=== PATIENT | female | born 1965 | race Caucasian/White ===

== ENCOUNTER 2017-11-26 20:35 | Inpatient (IN) | payer OTHER ==
[2017-11-26] MEDS: IV NORMAL SALINE 1000ML BAG 1,000 ML IV ×2 (20:45→23:14)
[2017-11-26 20:55] LABS: POC GLUCOSE 457 mg/dL (70-99)
[2017-11-26 21:19] LABS: ADD MAN DIFF? NO
[2017-11-26 21:22] LABS: BASO % 1 % (0-3); EOS # 0.1 x10^3/uL (0.0-0.7); EOS % 2 % (0-3); HEMATOCRIT 36.7 % (36.0-47.0); HEMOGLOBIN 12.3 g/dL (12.0-15.5); LYMPH # 1.7 x10^3/uL (1.0-4.8); LYMPH % 24 % (24-48); MEAN CORPUSCULAR HEMOGLOBIN 29 pg (25-35); MEAN CORPUSCULAR HGB CONC 34 g/dL (31-37); MEAN CORPUSCULAR VOLUME 85 fL (79-100); MONO # 0.4 x10^3/uL (0.0-1.1); MONO % 6 % (0-9); NEUT # 4.6 x10^3uL (1.8-7.7); NEUT % 68 % (31-73); PLATELET COUNT 635 x10^3/uL (140-400); RED BLOOD COUNT 4.31 x10^6/uL (3.50-5.40); RED CELL DISTRIBUTION WIDTH 16.1 % (11.5-14.5); WHITE BLOOD COUNT 6.9 x10^3/uL (4.0-11.0)
[2017-11-26 21:38] LABS: ANION GAP 5 (6-14); BLOOD UREA NITROGEN 34 mg/dL (7-20); CALCIUM 8.8 mg/dL (8.5-10.1); CARBON DIOXIDE 33 mmol/L (21-32); CHLORIDE 95 mmol/L (98-107); CREATININE 1.6 mg/dL (0.6-1.0); GFR 33.8; GLUCOSE 492 mg/dL (70-99); POTASSIUM 4.9 mmol/L (3.5-5.1); SODIUM 133 mmol/L (136-145)
[2017-11-26 21:46] LABS: ALBUMIN 2.3 g/dL (3.4-5.0); ALK PHOS 158 U/L (46-116); ALT (SGPT) 20 U/L (14-59); AST (SGOT) 20 U/L (15-37); DIRECT BILIRUBIN < 0.1 mg/dL (0.0-0.2); TOTAL BILIRUBIN 0.1 mg/dL (0.2-1.0); TOTAL PROTEIN 8.4 g/dL (6.4-8.2)
[2017-11-26 21:51] LABS: NT-PRO BNP 312 pg/mL (0-124); TROPONINI < 0.017 ng/mL (0.000-0.055)
[2017-11-26 21:51] LABS: CKMB MASS 0.9 ng/mL (0.0-3.6); CREATINE KINASE 30 U/L (26-192)
[2017-11-26 21:58] LABS: LACTIC ACID 1.7 mmol/L (0.4-2.0)
[2017-11-26 22:24] LABS: POC GLUCOSE 390 mg/dL (70-99)
[2017-11-26] MEDS ORDERED: ONDANSETRON PF 4 MG/2 ML VIAL. IV (23:30)
[2017-11-26] MEDS: HYDROcodone/APAP 5/325MG 1 TAB TABLET PO (23:45)
[2017-11-26] MEDS: INSULIN ASPART 300 UNITS/3 ML INSULN.PEN SQ (23:47)
[2017-11-27 00:08] LABS: BILIRUBIN,URINE NEGATIVE (NEG); CLARITY,URINE CLOUDY; COLOR,URINE YELLOW; GLUCOSE,URINE >=1000 mg/dL (NEG); NITRITE,URINE NEGATIVE (NEG); PROTEIN,URINE 100 mg/dL (NEG-TRACE); UROBILINOGEN,URINE 0.2 mg/dL (0.2 mg/dL)
[2017-11-27 00:14] LABS: BARBITURATES NEG (NEG); BENZODIAZEPINES NEG (NEG); CANNABINOIDS NEG (NEG); COCAINE NEG (NEG); METHADONE NEG (NEG); OPIATES NEG (NEG); PHENCYCLIDINE NEG (NEG)
[2017-11-27 00:17] LABS: AMPHETAMINE/METHAMPHETAMINE NEG (NEG); ETHANOL, URINE NEG (NEG)
[2017-11-27 00:43] LABS: WBC,URINE TNTC /HPF (0-4)
[2017-11-27 00:44] LABS: BACTERIA,URINE MODERATE /HPF (0-FEW); SQUAMOUS EPITHELIAL CELL,UR FEW /LPF
[2017-11-27 01:25] LABS: POC GLUCOSE 164 mg/dL (70-99)
[2017-11-27] MEDS: IV NORMAL SALINE 1000ML BAG 1,000 ML IV (02:34)
[2017-11-27 05:07] LABS: POC GLUCOSE 53 mg/dL (70-99)
[2017-11-27] MEDS: DEXTROSE 50% 25 GM / 50ML DISP.SYRIN. IV (05:09)
[2017-11-27 05:18] LABS: ADD MAN DIFF? NO
[2017-11-27 05:35] LABS: POC GLUCOSE 142 mg/dL (70-99)
[2017-11-27 05:36] LABS: BASO % 0 % (0-3); EOS # 0.2 x10^3/uL (0.0-0.7); EOS % 2 % (0-3); HEMATOCRIT 32.6 % (36.0-47.0); HEMOGLOBIN 10.8 g/dL (12.0-15.5); LYMPH # 2.6 x10^3/uL (1.0-4.8); LYMPH % 36 % (24-48); MEAN CORPUSCULAR HEMOGLOBIN 28 pg (25-35); MEAN CORPUSCULAR HGB CONC 33 g/dL (31-37); MEAN CORPUSCULAR VOLUME 85 fL (79-100); MONO # 0.6 x10^3/uL (0.0-1.1); MONO % 8 % (0-9); NEUT # 3.9 x10^3uL (1.8-7.7); NEUT % 54 % (31-73); PLATELET COUNT 552 x10^3/uL (140-400); RED BLOOD COUNT 3.84 x10^6/uL (3.50-5.40); RED CELL DISTRIBUTION WIDTH 16.1 % (11.5-14.5); WHITE BLOOD COUNT 7.3 x10^3/uL (4.0-11.0)
[2017-11-27 06:05] LABS: TROPONINI < 0.017 ng/mL (0.000-0.055)
[2017-11-27 06:15] LABS: ANION GAP 7 (6-14); BLOOD UREA NITROGEN 29 mg/dL (7-20); CALCIUM 8.1 mg/dL (8.5-10.1); CARBON DIOXIDE 29 mmol/L (21-32); CHLORIDE 108 mmol/L (98-107); CREATININE 1.2 mg/dL (0.6-1.0); GFR 47.2; GLUCOSE 52 mg/dL (70-99); POTASSIUM 4.3 mmol/L (3.5-5.1); SODIUM 144 mmol/L (136-145)
[2017-11-27] MEDS: INSULIN ASPART 300 UNITS/3 ML INSULN.PEN SQ ×5 (08:00→17:00)
[2017-11-27 09:22] LABS: POC GLUCOSE 140 mg/dL (70-99)
[2017-11-27] MEDS ORDERED: NON FORMULARY ITEM (Albuterol Sulfate (Ventolin Hfa Inhaler) 2 PUFF) IH (11:30)
[2017-11-27] MEDS ORDERED: NITROGLYCERIN SUBLINGUAL 0.4 MG BOTTLE OF 25. SL (11:30)
[2017-11-27 11:45] LABS: TROPONINI 0.021 ng/mL (0.000-0.055)
[2017-11-27] MEDS: ALBUTEROL SULFATE 2.5 MG/3 ML NEBU. NEB ×3 (12:00→19:23)
[2017-11-27] MEDS ORDERED: ALBUTEROL SULFATE 2.5 MG/3 ML NEBU. NEB (12:00)
[2017-11-27] MEDS: BUDESONIDE 0.5 MG/2 ML NEBU. NEB ×2 (12:00→19:23)
[2017-11-27 12:47] LABS: POC GLUCOSE 143 mg/dL (70-99)
[2017-11-27] MEDS: MILNACIPRAN 50 MG TABLET PO ×2 (14:59→21:11)
[2017-11-27] MEDS: POTASSIUM CHLORIDE 20 MEQ TABLET.ER. PO (14:59)
[2017-11-27] MEDS: ALISKIREN HEMIFUMARATE 150 MG TABLET. PO (14:59)
[2017-11-27] MEDS: GABAPENTIN 300 MG CAPSULE. PO ×2 (15:00→21:11)
[2017-11-27] MEDS: amLODIPine BESYLATE 10 MG TABLET PO (15:00)
[2017-11-27] MEDS: metFORMIN XR 500 MG TAB.ER.24H PO (15:00)
[2017-11-27] MEDS: MONTELUKAST SODIUM 10 MG TABLET. PO (15:00)
[2017-11-27] MEDS: hydroCHLOROthiazide 12.5 MG CAPSULE PO (15:00)
[2017-11-27] MEDS: SPIRONOLACTONE 25 MG TABLET PO (15:01)
[2017-11-27] MEDS: FAMOTIDINE 20 MG TABLET. PO ×2 (15:01→21:11)
[2017-11-27] MEDS: metOLazone 2.5 MG TABLET PO (15:01)
[2017-11-27] MEDS: FUROSEMIDE 40 MG TABLET. PO (15:02)
[2017-11-27] MEDS: CYCLOBENZAPRINE 10 MG TABLET. PO ×2 (15:02→21:11)
[2017-11-27] MEDS: LISINOPRIL 20 MG TABLET PO (15:02)
[2017-11-27] MEDS ORDERED: HYDROcodone/APAP 5/325MG 1 TAB TABLET PO (15:45)
[2017-11-27 16:43] LABS: POC GLUCOSE 280 mg/dL (70-99)
[2017-11-27 20:12] LABS: HEMOGLOBIN A1C 10.7 % (4.8-5.6)
[2017-11-27 20:51] LABS: POC GLUCOSE 181 mg/dL (70-99)
[2017-11-27] MEDS ORDERED: NON FORMULARY ITEM (Fluticasone/Salmeterol (Advair 250-50 Diskus) 1 PUFF) IH (21:00)
[2017-11-27] MEDS: ATORVASTATIN CALCIUM 40 MG TABLET. PO (21:11)
[2017-11-28] MEDS: ALBUTEROL SULFATE 2.5 MG/3 ML NEBU. NEB ×2 (01:25→14:08)
[2017-11-28] MEDS: INSULIN ASPART 300 UNITS/3 ML INSULN.PEN SQ ×6 (07:30→17:00)
[2017-11-28 08:08] LABS: POC GLUCOSE 252 mg/dL (70-99)
[2017-11-28] MEDS: CYCLOBENZAPRINE 10 MG TABLET. PO ×3 (08:49→20:57)
[2017-11-28] MEDS: metFORMIN XR 500 MG TAB.ER.24H PO (08:49)
[2017-11-28] MEDS: FAMOTIDINE 20 MG TABLET. PO ×2 (08:49→20:57)
[2017-11-28] MEDS: MONTELUKAST SODIUM 10 MG TABLET. PO (08:49)
[2017-11-28] MEDS: MILNACIPRAN 50 MG TABLET PO ×2 (08:49→20:57)
[2017-11-28] MEDS: FUROSEMIDE 40 MG TABLET. PO ×2 (08:49→18:18)
[2017-11-28] MEDS: traMADol 50 MG TABLET PO (08:49)
[2017-11-28] MEDS: hydroCHLOROthiazide 12.5 MG CAPSULE PO (08:50)
[2017-11-28] MEDS: LISINOPRIL 20 MG TABLET PO (08:50)
[2017-11-28] MEDS: metOLazone 2.5 MG TABLET PO (08:50)
[2017-11-28] MEDS: amLODIPine BESYLATE 10 MG TABLET PO (08:50)
[2017-11-28] MEDS: ALISKIREN HEMIFUMARATE 150 MG TABLET. PO (08:50)
[2017-11-28] MEDS: GABAPENTIN 300 MG CAPSULE. PO ×3 (08:50→20:57)
[2017-11-28] MEDS: SPIRONOLACTONE 25 MG TABLET PO (08:51)
[2017-11-28] MEDS: POTASSIUM CHLORIDE 20 MEQ TABLET.ER. PO (08:51)
[2017-11-28] MEDS: BUDESONIDE 0.5 MG/2 ML NEBU. NEB (09:00)
[2017-11-28] MEDS: INSULIN DETEMIR 300 UNITS/3 ML INSULN.PEN. SQ (09:04)
[2017-11-28 12:46] LABS: ADD MAN DIFF? NO
[2017-11-28 12:51] LABS: BASO # 0.1 x10^3/uL (0.0-0.2); BASO % 1 % (0-3); EOS # 0.1 x10^3/uL (0.0-0.7); EOS % 2 % (0-3); HEMOGLOBIN 10.4 g/dL (12.0-15.5); LYMPH # 2.7 x10^3/uL (1.0-4.8); LYMPH % 40 % (24-48); MEAN CORPUSCULAR HEMOGLOBIN 28 pg (25-35); MEAN CORPUSCULAR HGB CONC 34 g/dL (31-37); MEAN CORPUSCULAR VOLUME 83 fL (79-100); MONO # 0.4 x10^3/uL (0.0-1.1); MONO % 6 % (0-9); NEUT # 3.3 x10^3uL (1.8-7.7); NEUT % 51 % (31-73); PLATELET COUNT 521 x10^3/uL (140-400); RED BLOOD COUNT 3.73 x10^6/uL (3.50-5.40); RED CELL DISTRIBUTION WIDTH 15.6 % (11.5-14.5); WHITE BLOOD COUNT 6.6 x10^3/uL (4.0-11.0)
[2017-11-28 13:07] LABS: ANION GAP 5 (6-14); BLOOD UREA NITROGEN 26 mg/dL (7-20); CARBON DIOXIDE 28 mmol/L (21-32); CHLORIDE 103 mmol/L (98-107); CREATININE 1.2 mg/dL (0.6-1.0); GFR 47.2; GLUCOSE 63 mg/dL (70-99); SODIUM 136 mmol/L (136-145)
[2017-11-28 13:23] LABS: POC GLUCOSE 90 mg/dL (70-99)
[2017-11-28 17:29] LABS: POC GLUCOSE 76 mg/dL (70-99)
[2017-11-28 20:52] LABS: POC GLUCOSE 229 mg/dL (70-99)
[2017-11-28] MEDS: ATORVASTATIN CALCIUM 40 MG TABLET. PO (20:57)
[2017-11-29] MEDS: ALBUTEROL SULFATE 2.5 MG/3 ML NEBU. NEB (06:00)
[2017-11-29] MEDS: INSULIN DETEMIR 300 UNITS/3 ML INSULN.PEN. SQ (07:00)
[2017-11-29] MEDS: BUDESONIDE 0.5 MG/2 ML NEBU. NEB (07:22)
[2017-11-29] MEDS: INSULIN ASPART 300 UNITS/3 ML INSULN.PEN SQ ×2 (07:30→08:00)
[2017-11-29 07:58] LABS: POC GLUCOSE 168 mg/dL (70-99)
[2017-11-29] MEDS: metOLazone 2.5 MG TABLET PO (08:30)
[2017-11-29] MEDS: hydroCHLOROthiazide 12.5 MG CAPSULE PO (08:30)
[2017-11-29] MEDS: SPIRONOLACTONE 25 MG TABLET PO (08:30)
[2017-11-29] MEDS: ALISKIREN HEMIFUMARATE 150 MG TABLET. PO (08:30)
[2017-11-29] MEDS: FUROSEMIDE 40 MG TABLET. PO (08:30)
[2017-11-29] MEDS: CYCLOBENZAPRINE 10 MG TABLET. PO (08:31)
[2017-11-29] MEDS: MILNACIPRAN 50 MG TABLET PO (08:31)
[2017-11-29] MEDS: amLODIPine BESYLATE 10 MG TABLET PO (08:31)
[2017-11-29] MEDS: metFORMIN XR 500 MG TAB.ER.24H PO (08:31)
[2017-11-29] MEDS: MONTELUKAST SODIUM 10 MG TABLET. PO (08:31)
[2017-11-29] MEDS: FAMOTIDINE 20 MG TABLET. PO (08:31)
[2017-11-29] MEDS: LISINOPRIL 20 MG TABLET PO (08:32)
[2017-11-29] MEDS: GABAPENTIN 300 MG CAPSULE. PO (08:32)
[2017-11-29] MEDS: POTASSIUM CHLORIDE 20 MEQ TABLET.ER. PO (08:32)
== END 2017-11-29 09:15 | disposition home or self-care (01) | DRG 682 ==
LOC: 2 NORTH 23:15 → ER 20:35
PROVIDERS: Internal Medicine
DX: N17.9 Acute kidney failure, unspecified (principal); G93.41 Metabolic encephalopathy; E11.22 Type 2 diabetes mellitus with diabetic chronic kidney disease; E11.65 Type 2 diabetes mellitus with hyperglycemia; Z89.612 Acquired absence of left leg above knee; I25.10 Atherosclerotic heart disease of native coronary artery without angina pectoris; E78.00 Pure hypercholesterolemia, unspecified; N18.9 Chronic kidney disease, unspecified; I12.9 Hypertensive chronic kidney disease with stage 1 through stage 4 chronic kidney disease, or unspecified chronic kidney disease; J44.9 Chronic obstructive pulmonary disease, unspecified; Z95.5 Presence of coronary angioplasty implant and graft; Z89.511 Acquired absence of right leg below knee; Z90.49 Acquired absence of other specified parts of digestive tract; Z90.710 Acquired absence of both cervix and uterus; Z83.3 Family history of diabetes mellitus; Z82.49 Family history of ischemic heart disease and other diseases of the circulatory system; Z87.891 Personal history of nicotine dependence; Z88.6 Allergy status to analgesic agent; Z79.4 Long term (current) use of insulin; Z79.899 Other long term (current) drug therapy
CPT/HCPCS: 36415; 71045; 80048; 80076; 80307; 81001; 82553; 82962; 83036; 83605; 83735; 83880; 84484; 85025; 87040; 87086; 93005; 94640; 94760; 96360; 96361; 99285; 99285-25; J1815; J7030; J7042; J7613; J7626

== ENCOUNTER 2018-01-14 00:59 | Emergency (ER) | payer OTHER ==
[2018-01-14] MEDS: PHENYLEPHRINE 0.5% NASAL SPRAY 15ML BOTTLE. NS (01:35)
[2018-01-14] MEDS: LIDOCAINE WITH 8.4% SOD BICARB 3 ML DISP.SYRIN. INJ (01:35)
[2018-01-14 02:45] LABS: AGAP ISTAT 13 mmol/L (6-14); BUN ISTAT 36 mg/dL (8-26); CHLORIDE ISTAT 101 mmol/L (98-110); CREATININE ISTAT 1.5 mg/dL (0.5-1.4); GLUCOSE ISTAT 453 mg/dL (70-99); HEMATOCRIT ISTAT 20 % (36-40); HEMOGLOBIN ISTAT 6.8 g/dL (12-15); ION CA ISTAT 1.17 mmol/L (1.13-1.32); POTASSIUM ISTAT 5.1 mmol/L (3.5-5.0); SODIUM ISTAT 131 mmol/L (135-145); TOT CO2 ISTAT 23 mmol/L (23-32)
[2018-01-14 03:10] LABS: ADD MAN DIFF? NO
[2018-01-14 03:17] LABS: BASO % 1 % (0-3); EOS # 0.3 x10^3/uL (0.0-0.7); EOS % 4 % (0-3); HEMATOCRIT 23.6 % (36.0-47.0); HEMOGLOBIN 7.9 g/dL (12.0-15.5); LYMPH # 3.4 x10^3/uL (1.0-4.8); LYMPH % 51 % (24-48); MEAN CORPUSCULAR HEMOGLOBIN 28 pg (25-35); MEAN CORPUSCULAR HGB CONC 33 g/dL (31-37); MEAN CORPUSCULAR VOLUME 83 fL (79-100); MONO # 0.6 x10^3/uL (0.0-1.1); MONO % 9 % (0-9); NEUT # 2.4 x10^3uL (1.8-7.7); NEUT % 36 % (31-73); PLATELET COUNT 456 x10^3/uL (140-400); RED BLOOD COUNT 2.86 x10^6/uL (3.50-5.40); RED CELL DISTRIBUTION WIDTH 16.1 % (11.5-14.5); WHITE BLOOD COUNT 6.7 x10^3/uL (4.0-11.0)
[2018-01-14 03:23] LABS: ANION GAP 7 (6-14); BLOOD UREA NITROGEN 39 mg/dL (7-20); BUN/CREATININE RATIO 24 (6-20); CALCIUM 8.8 mg/dL (8.5-10.1); CARBON DIOXIDE 23 mmol/L (21-32); CHLORIDE 99 mmol/L (98-107); CREATININE 1.6 mg/dL (0.6-1.0); GFR 33.8; GLUCOSE 416 mg/dL (70-99); SODIUM 129 mmol/L (136-145)
[2018-01-14 03:29] LABS: ALBUMIN/GLOBULIN RATIO 0.4 (1.0-1.7); ALK PHOS 125 U/L (46-116); ALT (SGPT) 15 U/L (14-59); AST (SGOT) 13 U/L (15-37); TOTAL PROTEIN 7.4 g/dL (6.4-8.2)
[2018-01-14 03:33] LABS: TOTAL BILIRUBIN < 0.1 mg/dL (0.2-1.0)
[2018-01-14 03:45] LABS: INR 3.8 (0.8-1.1); PROTHROMBIN TIME PATIENT 36.4 SEC (11.7-14.0)
[2018-01-14] MEDS: IV NORMAL SALINE 1000ML BAG 1,000 ML IV (03:47)
[2018-01-14 04:34] LABS: IMMEDIATE SPIN CROSSMATCH 1 1
== END 2018-01-14 06:02 | disposition short-term general hospital (02) ==
LOC: ER 00:59
DX: R04.0 Epistaxis (principal); D64.9 Anemia, unspecified; E11.65 Type 2 diabetes mellitus with hyperglycemia; E78.00 Pure hypercholesterolemia, unspecified; I10 Essential (primary) hypertension; J44.9 Chronic obstructive pulmonary disease, unspecified; Z95.5 Presence of coronary angioplasty implant and graft; Z88.6 Allergy status to analgesic agent
CPT/HCPCS: 30901; 36415; 80047; 80053; 85025; 85610; 86850; 86900; 86901; 86920; 99285-25; J7030; P9016